=== PATIENT | female | born 1970 | race Caucasian/White ===

== ENCOUNTER 2018-05-06 21:05 | Emergency (ER) | payer OTHER ==
[~2018-05-06] VITALS: Ht 167.6 cm; Wt 88.5 kg
[~2018-05-06 21:05] MED LIST: DITROPAN XL5 M1 PO; GLIPIZIDE PO; GLUCOPHAGE1000 MG PO; LISINOPRIL10 MG PO; NORCO 5-325 TA1 EACH PO; ZOCOR40 MG PO
[2018-05-06] MEDS ORDERED: APIDRA (21:25)
[2018-05-06] MEDS ORDERED: IBUPROFEN 800800 MG PO (22:35)
[2018-05-06 22:56] VITALS: BP 163/100
== END 2018-05-06 22:57 | disposition home or self-care (01) ==
LOC: M.ERS 21:05
DX: S63.592A Other specified sprain of left wrist, initial encounter (principal); S80.01XA Contusion of right knee, initial encounter; E11.9 Type 2 diabetes mellitus without complications; E78.00 Pure hypercholesterolemia, unspecified; I10 Essential (primary) hypertension; W01.0XXA Fall on same level from slipping, tripping and stumbling without subsequent striking against object, initial encounter; Y93.89 Activity, other specified; Y92.89 Other specified places as the place of occurrence of the external cause; Y99.8 Other external cause status